=== PATIENT | male | born 2000 | race African-American/Black ===

== ENCOUNTER 2024-10-02 19:55 | Emergency (ER) | payer OTHER ==
[~2024-10-02] VITALS: Ht 180.3 cm; Wt 115.8 kg
[2024-10-02] MEDS: LIDOCAINE W/EPINEPHRINE 1% 20ML VIAL SC ONE (20:25)
[2024-10-02] MEDS: BACITRACIN OINTMENT 30GM TUBE TOP ONE (21:00)
[2024-10-02] MEDS ORDERED: CEPH500C PO (21:06)
[2024-10-02 21:27] VITALS: BP 175/94; TEMP 97.4; O2SAT 98
== END 2024-10-02 21:32 | disposition home or self-care (01) ==
LOC: M ED 19:55
DX: S01.81XA Laceration without foreign body of other part of head, initial encounter (principal); W01.198A Fall on same level from slipping, tripping and stumbling with subsequent striking against other object, initial encounter; Y92.89 Other specified places as the place of occurrence of the external cause; Y93.89 Activity, other specified; Y99.1 Military activity; Z79.2 Long term (current) use of antibiotics